=== PATIENT | female | born 2000 | race Native Hawaiian/Other Pacific Islander ===

== ENCOUNTER 2018-03-19 13:31 | Emergency (ER) | payer OTHER ==
[~2018-03-19] VITALS: Ht 162.6 cm; Wt 59.0 kg
[2018-03-19 13:43] VITALS: BP 103/50; TEMP 98.6
[2018-03-19 14:19] LABS: PLATELET COUNT 383 K/uL (152-353)
== END 2018-03-19 14:36 | disposition home or self-care (01) ==
LOC: ED 13:31
DX: J03.90 Acute tonsillitis, unspecified (principal)
CPT/HCPCS: 36415; 80053; 85027; 87081; 87880; 99283